=== PATIENT | male | born 1950 | race Caucasian/White ===

== ENCOUNTER → 2017-05-26 08:20 | Outpatient (CLI) | payer MEDICARE, OTHER, SELFPAY ==
[2017-05-26] VITALS (7 sets, daily range): BP systolic 118–144; BP diastolic 68–79; PULSE 69–91; RESP 16–18; TEMP 36.6–37.4; O2SAT 92–100; BMI 27.9
== END ==
PROVIDERS: Family Provider Family Medicine; PCP Family Medicine; Visit Provider Internal Medicine Hematology & Oncology
DX: Z51.89 Encounter for other specified aftercare (principal)
CPT/HCPCS: 36430; 86850; 86900; 86920; 86922; J7040; P9016; A4216

== ENCOUNTER 2017-08-28 11:26 | Day surgery (SDC) | payer MEDICARE, OTHER, SELFPAY ==
--- NOTE | 2017-08-28 | COLBX_PTH ---
PATIENT: SONYA ALVARENGA LOC: EN U#:[id number] AGE/SX: 66/M ROOM: RE08/28/[address]: Dr. Tramaine Zhang MD : 1950 BED: DIS: 08/28/2017 SPEC #: [id number] RECD: 08/28/17 15:47 STATUS: WILLIAM REMee #: [id number] SUSANNAH: 08/28/17 00:[address]: Tramaine Zhang DEPT: SURGICAL PATHOLOGY RECD BY: Prosper Bañuelos ENTERED: 08/29/17 10:43 SP TYPE: COLON BX OTHR DR: Dr. Manohar Obrien MD Tissues: Transverse colon Procedures: Surgery Specimen Level IV HEADER OPERATION: Colonoscopy PRE-OP DIAGNOSIS: Screening TISSUE SUBMITTED: Polyp proximal transverse MICROSCOPIC DIAGNOSIS Polyp proximal transverse, biopsy: Fragments of fecal material. See comment. SJ:cari 08/30/17 TC: Cannot Code COMMENT Colonic mucosal tissue is not identified in the submitted specimen. MICROSCOPIC DESCRIPTION Slides are reviewed. GROSS DESCRIPTION Received in fixative is one container labeled with the patient's name and designated polyp proximal transverse. The specimen consists of multiple fragments of reaves-brown material measuring in aggregate 2 x 0.5 x 0.2. The specimen is totally submitted in one cassette. RANDELL:cari 08/28/17 TC: Cannot Code CPT: 75085
--- NOTE | 2017-08-28 07:04 | HP.PCM_ITS ---
History and Physical Date of Admission: 08/28/17 Expand All Collapse All HISTORY AND PHYSICAL ? Celso Reed 1950 ? REFERRING PHYSICIAN: ~~Manohar Obrien MD ? CHIEF COMPLAINT: ~~colon consult ? HPI: The patient is a 66 year old male referred for endoscopy. ~Celso notes no history of colon complaints. ~He denies any change in bowel habits, weight changes, blood in stools, black tarry stools or abdominal pain. ~He denies a family history of colon cancer. ~He does note that his father had gastric cancer. ~~Patient had EGD in 2013 which showed normal appearing stomach and esophagus. ~He denies any reflux, nausea, vomiting or other upper GI complaints. ~ ? Celso has not~undergone prior colonoscopy. ~~~The patient is being seen by me today at the request of Dr. Obrien~for my opinion and advice regarding screening colonoscopy. ~Past medical history is significant for pancreatic cyst , obstructive lung disease, hyperlipidemia, familial hemochromatosis, bullous pemphigoid, DVT/PE, lupus anticoagulant. ~Patient is maintained on warfarin and follows with Dr. Obrien. ~He denies any chest pain, shortness of breath or recent hospitalizations. ~Denies problems with sedation in the past. ~ ? ? PAST MEDICAL HISTORY PAST MEDICAL HISTORY Diagnosis Date ? BP (bullous pemphigoid) 08/19/2010 ? Derm Dr Dickson ? Depressive disorder, not elsewhere classified ? ? Psych Dr Bryan ? Familial hemochromatosis (HCC) ? ? Heme Dr Colmenares ? Hyperlipidemia ? ? Obstructive lung disease (HCC) ? ? Osteomyelitis (HCC) ? ? S/p cat bite, right 4th digit ? Pancreatic cyst ? ? Pulmonary emboli (HCC) 04/04/13 ~~ ? ? PAST SURGICAL HISTORY PAST SURGICAL HISTORY Procedure Laterality Date ? PAST SURGICAL HISTORY OF ? ? ? 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 PAST SURGICAL HISTORY OF ? 04/17/2009 ? EGD/[facility] pancreatic cyst ? PAST SURGICAL HISTORY OF ? 10/31/13 ? EGD/[facility] pancreatic serous cystadenoma ? ? ? CURRENT MEDICATIONS ? Current Outpatient Prescriptions: peg 3350-Electrolytes (GOLYTELY) 236-22.74-6.74 -5.86 gram suspension Take 4,000 mL by mouth one time only for 1 dose. Niacinamide 500 mg tablet Take 1 tablet by mouth twice daily with meals. warfarin (COUMADIN) 5 mg tablet TAKE 7.5 mg Tues and 5 mg all other days OR DIRECTED warfarin (COUMADIN) 5 mg tablet Take 7.5 mg Tues and 5 mg all other days or as directed. dapsone 100 mg tablet Take 2 tablets by mouth once daily. predniSONE (DELTASONE) 20 mg tablet Take each morning with food: ~Take 3 tabs daily for 7 days, then take 2 tabs daily for 7 days, then take 1 tab daily until gone (Patient not taking: Reported on 06/23/2017 ) hydrOXYzine HCl (ATARAX) 25 mg tablet Take 1 tablet by mouth every 6 hours as needed for Itching/Rash. Clobetasol Propionate (TEMOVATE) 0.05 % external solution Apply to affected areas on scalp 1-2 times daily as needed. sertraline (ZOLOFT) 100 mg tablet Take two tablets by mouth once daily. lamoTRIgine (LAMICTAL) 200 mg tablet Take 1 tablet by mouth once daily. ARIPiprazole (ABILIFY) 10 mg tablet Take 1 tablet by mouth once daily. ? No current facility-administered medications for this visit. ? ALLERGIES: Review of patient's allergies indicates no known allergies. ? PERSONAL HISTORY: SOCIAL HISTORY Social History ~~Marital status: ~~~~~~~~~~~~Spouse name: ~~~~~~~~~~~~~~~~~~ ~~Years of education: ~~~~~~~~~~~~~~~~Number of children: 2 ~~~~~~~~ ? Occupational History Occupation ~~~~~~~~~Employer ~~~~~~~~~~~Comment ~~~~~~~~~~~~ Retired, [employer] and * ~~~~~~~~~~~~~~~~~~~~ ? Social History Main Topics ~~Smoking status: Former Smoker ~~~~~~~~~~~~~~~~~~~~~~~~~~~~~~~~~~~~~~~~~~~~~~~~ ~~~~~~~~ ~~~~~Packs/day: 1.00 ~~~~~Years: 30.00 ~~ ~~~~~Types: Cigarettes ~~~~~Quit date: 07/04/2008 ~~Smokeless status: Never Used ~~~~~~~~~~~~~~~~~~~ ~~Comment: Parents did not smoke in childhood home. ~~Alcohol use: Yes ~~~~~~~~ ~~~~~Comment: Only an occasional beer during summer ~~~~~~~~~~~~~~months. Nothing in the colder months. ~~Drug use: No ~~~~~~~~~ ~~Sexual activity: Yes ~~~~~~~~~~~~~~Partners with: Female ? Social History Narrative ~~1 son, 1 daughter ~~ ~~Blood type: A Positive ? ~~ ? FAMILY HISTORY: FAMILY HISTORY FAMILY HISTORY Problem Relation Age of Onset ? Asthma Mother ? ? NH [OTHER] Mother ? ? PNA [OTHER] Mother ? ? ? in 70s ? Stomach CA ~with mets [OTHER] Father ? ? ? in 70s ? Hyperlipidemia [OTHER] Daughter ? ? Thyroid Brother ? ? ? radiation induced ? COPD Brother ? ? ? REVIEW OF SYMPTOMS: ~~The review of systems data was entered by the nurse and reviewed by me ? Nursing Notes: Danielle Torres LPN ~06/30/2017 ~3:13 PM ~Signed REVIEW OF SYSTEMS: ~~~~~General:~~~The patient denies fatigue, denies weight loss, denies weight gain, denies feeling hot, and denies feelings of cold. ~~~~~Eyes: ~The patient denies glaucoma, denies eye injury/surgery, wears glasses or contacts. ~~~~~Ear/Nose/Throat: ~The patient denies allergies, denies hayfever, denies ear infections, and NOTES bloody noses. ~~~~~Cardiovascular: ~The patient denies chest pain, denies heart disease, denies high blood pressure,denies cardiac stent, denies prior heart attack, denies irregular heart beat, denies high cholesterol, ~denies poor circulation, denies heart failure, other cardiac issues, denies claudication, denies cold feet, denies peripheral arterial stent. ~~~~~Respiratory: ~The patient denies tuberculosis, NOTES pneumonia, denies frequent cough, NOTES pulmonary embolism, denies shortness of breath, and denies coughing up blood. ~~~~~Gastrointestinal: ~The patient denies difficulty swallowing, denies acid reflux, denies ulcers, denies vomiting, denies jaundice/hepatitis, denies gallbladder problems, denies black or tarry stools, denies hemorrhoids, denies bleeding from rectum, denies diverticulitis, denies constipation, denies diarrhea, denies loss of stool control, and denies hernias. ~~~~~Kidney/Bladder: ~The patient denies kidney stones, denies urine infections , and denies bloody urine. ~~~~~Skin: ~The patient denies a history of skin cancer, denies bleeding/ changing moles, and NOTES a history of skin rash. ~~~~~Neurologic: ~The patient denies a history of epilepsy/convulsions, denies headaches, denies head/spinal injuries, and denies stroke/TIA. ~~~~~Psychiatric: ~The patient denies psychiatric medications, NOTES depression , and denies voices, denies substance abuse. ~~~~~Endocrine: ~The patient denies thyroid disorders, denies diabetes, and denies hormonal problems. ~~~~~Hematologic: ~The patient denies a history of bruising, denies bleeding, and denies anemia, denies blood clots. ~~~~~Infections: ~The patient denies a history of measles and mumps, denies rheumatic fever, and denies sexually transmitted diseases. ~~~~~Musculoskeletal: ~The patient NOTES back pain/injury, denies back problems , denies sciatica, denies knee/foot trouble, denies arthritis, or denies gout. ? ? When was patient's last Mammogram screening? N/A ? ~Last Colonoscopy: ~None ? Danielle Torres LPN~ Vandana Brown PA-C ? ~ PHYSICAL EXAMINATION: ? General: ~The patient is 66 year old male, well nourished, well hydrated in no acute distress. ~The patient is oriented to time, place, and person. ? VITALS: Blood pressure 122/58, pulse 72, weight 89.8 kg (198 lb).~Body mass index is 29.67 kg/(m^2).~ ? HEENT: ~Normal cephalic, ataumatic, pupils are equally round, sclera are anicteric, mucous membranes are moist, oropharynx is clear. ~Neck has no masses , asymmetry or lymphadenopathy. ? Respiratory: ~Clear to auscultation and percussion. ~Normal respiratory excursion and pattern. ? Cardiac: ~Examination is regular rate and rhythm. ? Abdominal exam: ~Soft, nontender, ~with no palpable masses. ~No hepatosplenomegaly. ~No palpable hernias. ? Rectal exam: exam deferred ? Extremities: ~no clubbing, cyanosis or edema. ~No adenopathy. ? Other: ? LABORATORY VALUES: As Noted ? RADIOLOGIC STUDIES: ~As Noted ? ? Assessment ~ IMPRESSION: encounter for screening colonoscopy. ~Anticoagulation on warfarin for history of DVT/PE and lupus anticoagulant ? PLAN: ~We will plan for screening colonoscopy with MAC. ~We discussed the risks and benefits of the planned endoscopy. ~I have informed the patient that complications can occur including failure to complete the endoscopy and perforation. ~The patient had the opportunity to ask questions concerning the planned endoscopy. ~My staff has also explained the procedure to the patient in understandable terms and has given the patient printed material concerning the procedure. ~The patient freely consents to surgery. ? I plan to use golytely bowel preparation for endoscopy ? Patient will REMAIN ON his warfarin for the procedure. ~Would plan for INR check prior to procedure ? I plan for monitored anesthetic care. ? Diagnoses: (Z12.11) Encounter for screening for malignant neoplasm of colon ~( primary encounter diagnosis) (Z79.01) On continuous oral anticoagulation (Z86.718) Personal history of DVT (deep vein thrombosis) ? My findings have been communicated to Dr. Obrien~via shared medical record. ~This note will be forwarded to Dr. Manohar Obrien MD. ~~ Return to Clinic: The patient is instructed to follow-up with me 1 week post operatively. ? ? Vandana Brown PA-C
[2017-08-28 11:48] VITALS: BP 132/66; PULSE 77; RESP 16; TEMP 35.8; O2SAT 99; BMI 26.5
[2017-08-28 11:55] LABS: Prothrombin Time Fingerstick 17.2 SEC (11.9-14.4)
[2017-08-28 14:51] VITALS: BP 132/66; BP 93/62; PULSE 70; RESP 16; TEMP 36; O2SAT 93
[2017-08-28 14:55] VITALS: BP 132/66; BP 96/69; PULSE 70; RESP 14; O2SAT 93
[2017-08-28 15:00] VITALS: BP 132/66; BP 90/67; PULSE 70; RESP 16; O2SAT 93
[2017-08-28 15:05] VITALS: BP 131/83; BP 132/66; PULSE 68; RESP 16; TEMP 36.1; O2SAT 97
[2017-08-28 15:07] VITALS: BP 132/66
--- NOTE | 2017-08-28 19:04 | OP.PCM_ITS ---
Report of Operation Date of Procedure: 08/28/17 Pre-Operative Diagnosis: screening for colon cancer Post-Operative Diagnosis: polyp in proximal transverse colon-[place], Polypectomy, not retrieved Surgery/Procedure Performed:: colonoscopy with snare polypectomy pre sales technical consultant: None Type of Anesthesia:: MAC Anesthesiologist: Cash Angel - ASA2 Specimen's removed: polyp - not retrieved Description of Procedure: The patient was brought to the endoscopy suite. Sign in was performed verifying patient, site, planned procedure, critical nursing information, the patient was monitored with cardiac, pulse oximetric, and blood pressure monitoring devices. Monitored anesthetic care was provided for sedation. Following IV sedation the patient was positioned for colonoscopy. A digital rectal exam was performed which revealed no palpable abnormalities The video colonoscope was inserted and advanced to the cecum as verified by the ileocecal valve, cecal base anatomic features and palpation. colonoscopy was removed, no abnormalities were seen. The cecum, ascending colon, hepatic flexure. In the proximal transverse colon. There was approximately a 8 mm polyp. This was removed with snare polypectomy. The polyp was not obviously retrieved as it did not seem to be in the suction canister. After initial aspiration and after multiple attempts, could not be found in the vicinity. Plans to irrigate carefully for scope, with occlusion the case were undertaken. As the scope was further withdrawn. No abnormalities were seen. The remainder of the transverse colon, splenic flexure, descending colon, sigmoid colon or rectum, sigmoid. Scope was retroflexed in the rectum. This was unremarkable. The patient tolerated the procedure well and was brought to recovery in stable condition. given the size of the polyp, if the polyp was not retrieved-I recommend follow up endoscopy in 3 years
== END 2017-08-28 15:30 | disposition home or self-care (01) ==
LOC: EN 11:28 → AC 11:28
PROVIDERS: Family Provider Family Medicine; PCP Family Medicine; Visit Provider Surgery
PROC: 0DJD8ZZ Inspection of Lower Intestinal Tract, Via Natural or Artificial Opening Endoscopic (ICD-10-PCS; CPT 45378; principal; 2017-08-28 12:25)
DX: Z12.11 Encounter for screening for malignant neoplasm of colon (principal); K63.5 Polyp of colon; Z79.01 Long term (current) use of anticoagulants; Z86.718 Personal history of other venous thrombosis and embolism; Z87.891 Personal history of nicotine dependence
CPT/HCPCS: 45380; 36416; 85610; 88305; J7120